=== PATIENT | female | born 1970 | race Caucasian/White ===

== ENCOUNTER 2019-07-14 11:16 | Emergency (ER) | payer OTHER ==
--- NOTE | 2019-07-14 12:30 | EDM.PDOC ---
ED HPI GENERAL MEDICAL PROBLEM - General Chief Complaint: Abdominal Pain Stated Complaint: VOMITING STOMACH PAIN Time Seen by Provider: 07/14/19 12:20 Source of Information: Reports: Patient History Limitations: Reports: No Limitations - History of Present Illness INITIAL COMMENTS - FREE TEXT/NARRATIVE: pt has had a bad cough for about 3 days. She has been coughing until she vomits. She now has left sided abdomanal pain and ias not holding anything down. Onset: Other (The abdomanal pain got severe today. She has had loose stools since last nite. ) Duration: Hour(s): Location: Reports: Chest, Abdomen Associated Symptoms: Reports: Cough, Shortness of Breath, Other ( pt feels like she has bronchitis. ) Left Lower Abdominal Pain Score (Numeric/FACES): 7 - Related Data Allergies Allergy/AdvReac Type Severity Reaction Status Date / Time amoxicillin Allergy Cannot Verified 09/04/16 06:01 Remember aspirin Allergy Hives Verified 09/04/16 06:01 NSAIDS (Non-Steroidal Allergy Airway Verified 09/04/16 06:01 Anti-Inflamma Tightness Penicillins Allergy Cannot Verified 09/04/16 06:01 Remember Home Meds: Home Meds ALPRAZolam [Xanax] 0.25 mg PO TID PRN 07/11/16 [History] Albuterol [IJP: Ventolin HFA] 2 puff INH Q6HR PRN 07/11/16 [History] FLUoxetine [PROzac] 20 mg PO DAILY 07/11/16 [History] Fluticasone/Salmeterol [Advair Diskus 500-50] 1 puff INH BID 07/11/16 [History] Lisdexamfetamine [Vyvanse] 40 mg PO DAILY 07/11/16 [History] Montelukast [Singulair] 10 mg PO BEDTIME 07/11/16 [History] SUMAtriptan 100 mg PO ASDIRECTED PRN 07/11/16 [History] lamoTRIgine 100 mg PO DAILY 07/11/16 [History] Metoprolol Succinate [Toprol XL] 25 mg PO BEDTIME 08/31/16 [History] Fluticasone Propionate [Flonase] 2 spray NASBOTH DAILY 09/05/16 [History] Cyanocobalamin (Vitamin B-12) [Vitamin B-12] 1,000 mcg SL DAILY #100 tab.subl [Rx] HYDROmorphone [Dilaudid] 2 - 4 mg PO Q4H PRN #50 tablet 09/07/16 [Rx] Multivitamin [Multiple Vitamins] 1 tab PO BID #0 09/07/16 [Rx] Ondansetron [Zofran ODT] 4 mg PO Q6H PRN #30 tab.dis 09/07/16 [Rx] Past Medical History HEENT History: Reports: Allergic Rhinitis, Impaired Vision, Sinusitis Other HEENT History: wears glasses Cardiovascular History: Reports: Hypertension, Other (See Below) Other Cardiovascular History: PE and DVT Respiratory History: Reports: Asthma Gastrointestinal History: Reports: Bowel Obstruction Genitourinary History: Reports: None [employer] History: Reports: Endometriosis, Neurological History: Reports: Migraines Psychiatric History: Reports: Bipolar Endocrine/Metabolic History: Reports: Obesity/BMI 30+ Hematologic History: Reports: B12 Deficiency, Iron Deficiency - Infectious Disease History Infectious Disease History: Reports: Chicken Pox - Past Surgical History HEENT Surgical History: Reports: Naso-Sinus Surgery Respiratory Surgical History: Reports: None GI Surgical History: Reports: Bariatric Procedure, Cholecystectomy, EGD Female Surgical History: Reports: Hysterectomy Endocrine Surgical History: Reports: None Neurological Surgical History: Reports: None Musculoskeletal Surgical History: Reports: Other (See Below) Dermatological Surgical History: Reports: None Social & Family History - Family History HEENT: Reports: Glaucoma Cardiac: Reports: Afib, Heart Valve Replacement, High Cholesterol, Hypertension , Stent Neurological: Reports: Alzheimers Disease Endocrine/Metabolic: Reports: Diabetes, Type I - Tobacco Use Smoking Status *Q: Never Smoker - Caffeine Use Caffeine Use: Reports: Soda - Recreational Drug Use Recreational Drug Use: No ED ROS GENERAL - Review of Systems Review Of Systems: See Below Constitutional: Reports: No Symptoms HEENT: Reports: No Symptoms Respiratory: Reports: No Symptoms Cardiovascular: Reports: No Symptoms Endocrine: Reports: No Symptoms GI/Abdominal: Reports: Abdominal Pain, Other (pt has left sided abdomanal pain. This got very severe last nite and today. ) : Reports: Other (left mid abdomanal pain. ) Musculoskeletal: Reports: No Symptoms Skin: Reports: No Symptoms ED EXAM, GI/ABD - Physical Exam Exam: See Below Text/Narrative:: pt arrived with severe pain in the left mid abdoman. She has a past history of a rny. Exam Limited By: No Limitations General Appearance: Alert, Anxious, Moderate Distress Ears: Normal TMs Nose: Normal Inspection Throat/Mouth: Normal Inspection Head: Atraumatic Neck: Normal Inspection Respiratory/Chest: No Respiratory Distress Cardiovascular: Regular Rate, Rhythm GI/Abdominal Exam: Other (pain in the left mid abdoman. Pt has not been vomiting but has been nauseated. ) (Female) Exam: Deferred Rectal (Female) Exam: Deferred Back Exam: Normal Inspection Extremities: Normal Inspection Neurological: Alert, Oriented, Normal Cognition Psychiatric: Normal Affect Course - Vital Signs Last Recorded V/S: Last Vital Signs Temp 36.8 C 07/14/19 15:58 Pulse 95 07/14/19 15:58 Resp 16 07/14/19 15:58 BP 128/77 07/14/19 15:58 Pulse Ox 94 L 07/14/19 15:58 - Orders/Labs/Meds Labs: Laboratory Tests 07/14/19 07/14/19 07/14/19 Range/Units 11:56 12:12 12:12 WBC 7.0 (4.5-11.0) K/uL RBC 4.70 (3.30-5.50) M/uL Hgb 12.8 (12.0-15.0) g/dL Hct 40.0 (36.0-48.0) % MCV 85 (80-98) fL MCH 27 (27-31) pg MCHC 32 (32-36) % Plt Count 256 (150-400) K/uL Neut % (Auto) 59 (36-66) % Lymph % (Auto) 22 L (24-44) % Greene % (Auto) 11 H (2-6) % Eos % (Auto) 8 H (2-4) % Baso % (Auto) 0 (0-1) % Sodium (140-148) mmol/L Potassium (3.6-5.2) mmol/L Chloride (100-108) mmol/L Carbon Dioxide (21-32) mmol/L Anion Gap (5.0-14.0) mmol/L BUN (7-18) mg/dL Creatinine (0.6-1.0) mg/dL Est Cr Clr Drug Dosing mL/min Estimated GFR (MDRD) (>60) Glucose (74-106) mg/dL Calcium (8.5-10.1) mg/dL Total Bilirubin (0.2-1.0) mg/dL AST (15-37) U/L ALT (12-78) U/L Alkaline Phosphatase (46-116) U/L C-Reactive Protein 1.31 H (0.0-0.3) mg/dL Total Protein (6.4-8.2) g/dL Albumin (3.4-5.0) g/dL Globulin (2.3-3.5) g/dL Albumin/Globulin Ratio (1.2-2.2) Urine Color Yellow (YELLOW) Urine Appearance Slightly cloudy A (CLEAR) Urine pH 6.0 (5.0-8.0) Ur Specific [place] >= 1.030 (1.008-1.030) Urine Protein Trace H (NEGATIVE) mg/dL Urine Glucose (UA) 100 H (NEGATIVE) mg/dL Urine Ketones 40 H (NEGATIVE) mg/dL Urine Occult Blood Trace-intact H (NEGATIVE) Urine Nitrite Negative (NEGATIVE) Urine Bilirubin Small H (NEGATIVE) Urine Urobilinogen 1.0 (0.2-1.0) EU/dL Ur Leukocyte Esterase Negative (NEGATIVE) Urine RBC 0-5 (0-5) Urine WBC 0-5 (0-5) Ur Epithelial Cells Moderate Amorphous Sediment Not seen Urine Bacteria Rare Urine Mucus Moderate /15/19 Range/Units 12:12 WBC (4.5-11.0) K/uL RBC (3.30-5.50) M/uL Hgb (12.0-15.0) g/dL Hct (36.0-48.0) % MCV (80-98) fL MCH (27-31) pg MCHC (32-36) % Plt Count (150-400) K/uL Neut % (Auto) (36-66) % Lymph % (Auto) (24-44) % Greene % (Auto) (2-6) % Eos % (Auto) (2-4) % Baso % (Auto) (0-1) % Sodium 140 (140-148) mmol/L Potassium 4.0 (3.6-5.2) mmol/L Chloride 104 (100-108) mmol/L Carbon Dioxide 24 (21-32) mmol/L Anion Gap 11.8 (5.0-14.0) mmol/L BUN 14 (7-18) mg/dL Creatinine 0.9 (0.6-1.0) mg/dL Est Cr Clr Drug Dosing 75.44 mL/min Estimated GFR (MDRD) > 60 (>60) Glucose 124 H (74-106) mg/dL Calcium 8.8 (8.5-10.1) mg/dL Total Bilirubin 0.8 (0.2-1.0) mg/dL AST 16 (15-37) U/L ALT 18 (12-78) U/L Alkaline Phosphatase 137 H (46-116) U/L C-Reactive Protein (0.0-0.3) mg/dL Total Protein 7.2 (6.4-8.2) g/dL Albumin 3.7 (3.4-5.0) g/dL Globulin 3.5 (2.3-3.5) g/dL Albumin/Globulin Ratio 1.1 L (1.2-2.2) Urine Color (YELLOW) Urine Appearance (CLEAR) Urine pH (5.0-8.0) Ur Specific [place] (1.008-1.030) Urine Protein (NEGATIVE) mg/dL Urine Glucose (UA) (NEGATIVE) mg/dL Urine Ketones (NEGATIVE) mg/dL Urine Occult Blood (NEGATIVE) Urine Nitrite (NEGATIVE) Urine Bilirubin (NEGATIVE) Urine Urobilinogen (0.2-1.0) EU/dL Ur Leukocyte Esterase (NEGATIVE) Urine RBC (0-5) Urine WBC (0-5) Ur Epithelial Cells Amorphous Sediment Urine Bacteria Urine Mucus Meds: Medications Discontinued Medications Generic Name Dose Route Start Last Admin Trade Name Freq PRN Reason Stop Dose Admin Albuterol 2.5 mg 07/14/19 12:41 07/14/19 13:12 Proventil Neb Soln NEB 07/14/19 12:42 2.5 mg ONETIME ONE Administration Hydromorphone HCl 0.5 mg 07/14/19 12:38 07/14/19 13:11 Dilaudid IVPUSH 07/14/19 12:39 0.5 mg ONETIME ONE Administration Hydromorphone HCl 0.5 mg 07/14/19 16:17 07/14/19 17:03 Dilaudid IVPUSH 07/14/19 16:18 0.5 mg ONETIME ONE Administration Sodium Chloride 1,000 mls @ 999 mls/hr 07/14/19 12:45 07/14/19 13:12 Normal Saline IV 999 mls/hr ASDIRECTED BLADIMIR Administration Sodium Chloride 82 mls @ 3.5 mls/sec 07/14/19 13:30 07/14/19 13:27 Normal Saline IV 3.5 mls/sec ASDIRECTED BLADIMIR Administration Sodium Chloride 1,000 mls @ 999 mls/hr 07/14/19 15:00 07/14/19 15:59 Normal Saline IV 999 mls/hr ASDIRECTED BLADIMIR Administration Iopamidol 140 ml 07/14/19 13:23 07/14/19 13:27 Isovue-300 (61%) IV 07/14/19 13:24 140 ml . DIRECTED ONE Administration Ketorolac Tromethamine 30 mg 07/14/19 16:11 Toradol IVPUSH 07/14/19 16:12 ONETIME ONE Ondansetron HCl 4 mg 07/14/19 12:37 07/14/19 13:10 Zofran IVPUSH 07/14/19 12:38 4 mg ONETIME ONE Administration Tamsulosin HCl 0.4 mg 07/14/19 15:51 07/14/19 16:14 Flomax PO 07/14/19 15:52 0.4 mg ONETIME ONE Administration Departure - Departure Time of Disposition: 16:50 Disposition: Home, Self-Care 01 Condition: Fair Clinical Impression: Left ureteral stone - Discharge Information Instructions: Kidney Stones, [id number] Referrals: Raj So NP [Primary Care Provider] - Forms: ED Department Discharge Care Plan Goals: flomax .4 1 tab daily , strain all urine, push fluids, percocet 5/325 q6h prn for pain#8. rtc if pain should become more severe.
[2019-07-14] MEDS ORDERED: Ondansetron 4 MG/2 ML SDV IVPUSH ONE (12:37)
[2019-07-14] MEDS ORDERED: HYDROmorphone 0.5 MG/0.5 ML Syringe IVPUSH ONE ×2 (12:38→16:17)
[2019-07-14] MEDS ORDERED: Albuterol 0.083% 2.5 MG/3 ML Neb Soln NEB ONE (12:41)
[2019-07-14] MEDS ORDERED: Sodium Chloride 0.9% 1,000 ML IV SCH ×2 (12:45→15:00)
[2019-07-14] MEDS ORDERED: Iopamidol 612 MG/ML 150 ML Bottle IV ONE (13:23)
--- NOTE | 2019-07-14 13:47 | CRLCR ---
INDICATION: Shortness of breath and wheezy TECHNIQUE: Chest radiograph 2 views COMPARISON: None FINDINGS: Mediastinum: The mediastinum is normal in appearance. The heart silhouette is normal in size and morphology. Lung: Both lungs are unremarkable in appearance. No sign of pleural effusion seen. No pneumothorax is identified. Bone and Soft tissue: Unremarkable for age. IMPRESSION: 1. No acute cardiopulmonary disease is seen. Dictated by: Homero Quiles MD @ 07/14/2019 13:45:59 (Electronically Signed)
--- NOTE | 2019-07-14 14:42 | CRLCT ---
Indication: Left-sided abdominal pain Technique: Contrast enhanced axial CT imaging through the abdomen and pelvis. 140 mL Isovue-300 contrast agent was administered intravenously. Sagittal and coronal reconstructions are provided. Comparison: None Findings: The included lung bases are clear. There is no significant abnormality of the liver, spleen, pancreas, adrenal glands, and kidneys. The gallbladder is surgically absent. Punctate hyperdensity in the region of the left ureterovesical junction (axial image 129) may be within the distal left ureter. There is no hydronephrosis. There is no abdominal lymphadenopathy. There is normal enhancement of the portal venous system. There is normal caliber of the abdominal aorta. Gastric bypass changes are noted. There are no abnormally dilated small bowel loops. The appendix is noninflamed. The colon is unremarkable. No significant inflammatory changes are demonstrated in the mesentery. There is multilevel degenerative disc disease of the lower lumbar spine, most pronounced at L4-L5. Impression: 1. Possible punctate left distal ureteral stone. No hydronephrosis. 2. Otherwise no acute process demonstrated in the abdomen or pelvis. 3. Multilevel degenerative disc disease in the lower lumbar spine. Please note that all CT scans at this facility use dose modulation, iterative reconstruction, and/or weight-based dosing when appropriate to reduce radiation dose to as low as reasonably achievable. Dictated by Reyna Kauffman MD @ Jul 14 2019 2:27PM Signed by Dr. Reyna Kauffman @ Jul 14 2019 2:40PM
[2019-07-14] MEDS ORDERED: Tamsulosin 0.4 MG Cap.ER PO ONE (15:51)
[2019-07-14 15:59] VITALS: BP 128/77; PULSE 95
[2019-07-14] MEDS ORDERED: Ketorolac 30 MG/ML SDV IVPUSH ONE (16:11)
== END 2019-07-14 17:37 | disposition home or self-care (01) ==
LOC: JP.ED 11:16
DX: N20.1 Calculus of ureter (principal); I10 Essential (primary) hypertension; E11.9 Type 2 diabetes mellitus without complications; J45.909 Unspecified asthma, uncomplicated; E66.9 Obesity, unspecified; Z88.6 Allergy status to analgesic agent; Z88.0 Allergy status to penicillin; Z79.51 Long term (current) use of inhaled steroids; Z79.899 Other long term (current) drug therapy
CPT/HCPCS: 36415; 71046; 74177; 80053; 81001; 85025; 86140; 87086; 94640; 96361; 96374; 96375; 96376; 99285; A9270; J1170; J2405; J7030